=== PATIENT | female | born 1990 | race Caucasian/White ===

== ENCOUNTER 2019-02-19 12:43 | Inpatient (IN) | payer OTHER ==
[2019-02-19] MEDS ORDERED: WITCH HAZEL 50% (TUCKS) 40 PAD/JAR PAD TP PRN (14:04)
[2019-02-19] MEDS ORDERED: IBUPROFEN 800 MG/8 ML IJ IVPB PRN (14:04)
[2019-02-19] MEDS ORDERED: BENZOCAINE 20% 57 GM BOTTLE TP PRN (14:04)
[2019-02-19] MEDS ORDERED: BENZOCAINE 28 GM HEMORRHOIDAL OINTMENT PR PRN (14:04)
[2019-02-19] MEDS ORDERED: METHYLERGONOVINE MALEATE 0.2 MG/1 ML AMP IM PRN (14:04)
[2019-02-19] MEDS ORDERED: diphenhydrAMINE HCL 25 MG CAPSULE (FP) PO PRN (14:04)
--- NOTE | 2019-02-19 14:04 | HP ---
Past Medical History - Primary Care Physician PCP:: Myla Muñoz - Admission Chief Complaint: Prev CS X 2 week History of Present Illness: 28 yo Previous cS in active labor for repeat CS History Source: Patient Limitations to Obtaining History: No Limitations - Past Medical History ...: 3 ...Para: 2 ...Term: 2 ...: 0 ...Spon : 0 ...Induced : 0 ...EDC by [facility]: 03/04/19 - Past Surgical History Past Surgical History: Yes: Hx Myomectomy: No Hx Transabdominal Cerclage: No - Smoking History Have you smoked in the past 12 months: No - Alcohol/Substance Use Hx Alcohol Use: No History of Substance Use: reports: None - Social History History of Recent Travel: No Home Medications - Allergies Allergies/Adverse Reactions: Allergies Allergy/AdvReac Type Severity Reaction Status Date / Time No Known Allergies Allergy Verified 02/19/19 13:25 - Home Medications Home Medications: Ambulatory Orders Vits96/Iron Fum/Folic [ Tablet] 1 each PO DAILY 02/19/19 Ibuprofen [Motrin -] 600 mg PO QID #28 tablet 02/21/19 Physical Exam - Maternity Vital Signs: Vital Signs Temperature 98.0 F 02/19/19 13:40 Pulse Rate 105 H 02/19/19 13:40 Respiratory Rate 18 02/19/19 13:40 Blood Pressure 124/66 02/19/19 13:40 O2 Sat by Pulse Oximetry (%) Hemorrhage Risk Assessment - Risk Factors Medium Risk Factors: Yes: Prior , uterine surgery,or multiple laparotomies High Risk Factors: Yes: Active bleeding on admission Risk Score: 3 Risk Level: High Risk Problem List - Problems (1) Previous delivery affecting , antepartum Code(s): O34.219 - MATERNAL CARE FOR UNSP TYPE SCAR FROM PREVIOUS DEL (2) 38 weeks gestation of Code(s): Z3A.38 - 38 WEEKS GESTATION OF Assessment/Plan Prev CS X 2 Active bleeding Cat 1 Plan Repeat CS
[2019-02-19 14:07] LABS: BASO % 0.4 % (0-2.0); EOS % 2.2 % (0-4.5); HEMATOCRIT 38.1 % (32.4-45.2); HEMOGLOBIN 12.9 GM/dL (10.7-15.3); LYMPH % 17.2 % (8-40); MCH 30.3 pg (25.7-33.7); MCHC 33.9 g/dl (32.0-36.0); MEAN CELL VOLUME 89.3 fl (80-96); MEAN PLT VOLUME 9.8 fl (7.5-11.1); MONO % 7.8 % (3.8-10.2); NEUT % 72.4 % (42.8-82.8); PLATELET COUNT 205 K/MM3 (134-434); RBC 4.26 M/mm3 (3.60-5.2); RDW 13.4 % (11.6-15.6); WHITE BLOOD COUNT 9.8 K/mm3 (4.0-10.0)
[2019-02-19] MEDS ORDERED: ELECTROLYTE-148 SOLN 1,000 ML IV SCH ×2 (14:15→15:00)
[2019-02-19] MEDS ORDERED: METOCLOPRAMIDE HCL INJECTION 10 MG/2 ML VIAL IVPUSH ONE (14:18)
[2019-02-19 14:19] VITALS: BMI 32.3
[2019-02-19 14:20] LABS: INR 0.95 (0.83-1.09); PROTHROMBIN TIME (PATIENT) 11.2 SEC (9.7-13.0)
[2019-02-19 14:23] LABS: ACTIVATED PTT 27.2 SECONDS (25.2-36.5)
[2019-02-19] MEDS ORDERED: METOCLOPRAMIDE HCL INJECTION 10 MG/2 ML VIAL ONE (14:27)
[2019-02-19] MEDS ORDERED: CITRIC ACID/SODIUM CITRATE 30 ML UNIT-DOSE CUP PO ONE (14:30)
[2019-02-19] MEDS ORDERED: ELECTROLYTE-148 SOLN 500 ML IV SCH (14:30)
[2019-02-19 14:56] LABS: BLOOD UREA NITROGEN 8.6 mg/dL (7-18); CALCIUM 8.2 mg/dL (8.5-10.1); CREATININE 0.5 mg/dL (0.55-1.3)
[2019-02-19] MEDS ORDERED: OXYTOCIN 20 UNITS in 0.9% NS 40 UNIT/2,000 ML INFUS.BAG IV ONE (15:39)
[2019-02-19] MEDS ORDERED: morphine SULFATE/PF 0.5 MG/ML (2cc Syringe - QUVA) ONE (16:58)
[2019-02-19] MEDS ORDERED: ceFAZolin SODIUM 1 GM VIAL ONE (17:00)
[2019-02-19] MEDS ORDERED: PHENYLEPHRINE HCL 10 MG/1 ML SINGLE DOSE VIAL ONE (17:10)
[2019-02-19] MEDS ORDERED: KETOROLAC TROMETHAMINE 30 MG/1 ML VIAL ONE (17:34)
[2019-02-19] MEDS: OXYTOCIN 20 UNITS in 0.9% NS 20 UNIT/1,000 ML INFUS.BAG IV SCH (17:56)
--- NOTE | 2019-02-19 18:01 | OP ---
Operative Note - Note: Operative Date: 02/19/19 Pre-Operative Diagnosis: Previous Section Operation: Low Transverse Section Findings: Live male infant Post-Operative Diagnosis: Same as Pre-op Surgeon: Myla Muñoz Anesthesia: Spinal Estimated Blood Loss (mls): 600 Operative Report Dictated: Yes
[2019-02-19] MEDS ORDERED: ONDANSETRON 4 MG/2 ML VIAL IVPUSH PRN (18:08)
--- NOTE | 2019-02-19 20:05 | OP ---
DATE OF OPERATION: 02/19/2019 PREOPERATIVE DIAGNOSIS: Previous section, active labor, intrauterine at 38 weeks. OPERATION: Repeat low transverse section. POSTOPERATIVE DIAGNOSIS: Live male , nuchal cord x1. SURGEON: Myla Muñoz M.D. TAPROOM ATTENDANT: Piyush Castillo M.D. ANESTHESIA: Spinal. ESTIMATED BLOOD LOSS: 600 mL. PROCEDURE: Patient was taken to the operating room, placed in supine position. Prepped and draped in usual sterile fashion. Timeout was performed in accordance with hospital regulation. A Pfannenstiel skin incision was made with the patient's scar. Cautery was then used to go through layers of abdominal wall to the fascia. Cautery was then cut in the midline and fascia was then opened in a smiley fashion. Boo was then used to bluntly and sharply dissect the rectus muscles off the fascia. Muscle was split in the midline. Peritoneal cavity was entered up and down with bladder retractor then placed. Scalpel was then used to make a low transverse uterine incision. Incision was carried upwards with the use of bandage scissors. A live male was delivered in OT position. Nuchal cord x1 was reduced. Shoulders were delivered without difficulty. Cord was clamped and cut. Cord blood obtained. Placenta was manually extracted from uterus. Uterus exteriorized and cleaned with lap pads. Uterine incision then closed using 0 Vicryl suture, 1st layer continuous and locking, 2nd layer imbricating 1st layer. Hemostasis was achieved. Uterus interiorized. Abdominal cavity cleaned with lap pads. Peritoneum closed with 0 Biosyn suture. Fascia then closed using 0 Vicryl sutures, 2 parts. Skin was then closed using 3-0 Vicryl in continuous fashion. The wound was washed and dressed. Patient tolerated procedure well. Estimated blood loss 600 mL. MYLA MUÑOZ M.D. [id number]
--- NOTE | 2019-02-20 10:47 | PN ---
Progress Note, Physician Chief Complaint: s/p c section post op day one History of Present Illness: under spinal anesthesia and duramorph for post op pain control - Current Medication List Current Medications: Active Medications Acetaminophen (Tylenol -) 650 mg PO Q4H PRN PRN Reason: FEVER Benzocaine (Americaine 20% Hawkins -) 1 spray TP PRN PRN PRN Reason: Pain - Topical Benzocaine (Americaine Ointment -) 1 applic MO PRN PRN PRN Reason: Pain - Topical Bisacodyl (Dulcolax Suppository -) 10 mg RC PRN PRN PRN Reason: CONSTIPATION Diphenhydramine HCl (Benadryl -) 25 mg PO Q6H PRN PRN Reason: FOR ITCHING Hydromorphone HCl (Dilaudid -) 4 mg PO Q4H PRN PRN Reason: PAIN LEVEL 7 - 10 Stop: 02/21/19 14:03 Oxytocin/Sodium Chloride (Normal Saline+20 Units Oxytocin -) 20 unit in 1,000 mls @ 125 mls/hr IV [facility] Stop: 02/21/19 02:44 Last Admin: 02/19/19 17:56 Dose: 125 mls/hr Ibuprofen (Caldolor Injection -) 800 mg IVPB Q6H PRN PRN Reason: Fever - If PO not effective. Last Admin: 02/20/19 06:03 Dose: 800 mg Ibuprofen (Motrin -) 600 mg PO Q4H PRN PRN Reason: FEVER Methylergonovine Maleate (Methergine Injection -) 0.2 mg IM Q4H PRN PRN Reason: EXCESSIVE BLEEDING Ondansetron HCl (Zofran Injection) 4 mg IVPUSH Q4H PRN PRN Reason: NAUSEA Oxycodone HCl (Roxicodone -) 5 mg PO Q4H PRN PRN Reason: PAIN LEVEL 1-5 Oxycodone HCl (Roxicodone -) 10 mg PO Q4H PRN PRN Reason: PAIN LEVEL 6-10 Senna/Docusate Sodium (Pericolace -) 2 tablet PO HS PRN PRN Reason: CONSTIPATION Simethicone (Mylicon -) 80 mg PO Q4H PRN PRN Reason: GAS Witch Suly/Glycerin (Tucks Pads -) 1 pad TP PRN PRN PRN Reason: Pain - Topical - Objective Vital Signs: Vital Signs Temperature 98.7 F 02/20/19 07:30 Pulse Rate 84 02/20/19 07:30 Respiratory Rate 18 02/20/19 10:00 Blood Pressure 112/53 L 02/20/19 07:30 O2 Sat by Pulse Oximetry (%) 100 02/19/19 18:45 Constitutional: Yes: Well Nourished Cardiovascular: Yes: WNL Respiratory: Yes: WNL Gastrointestinal: Yes: WNL Labs: CBC, BMP 02/19/19 13:55 02/19/19 13:55 INR, PTT INR 0.95 (0.83-1.09) 02/19/19 13:55 Assessment/Plan No adverse anesthetic complications, dept of anesthesiology will sign off at this time
[2019-02-20 11:01] LABS: HEMATOCRIT 32.2 % (32.4-45.2); HEMOGLOBIN 11.1 GM/dL (10.7-15.3); MCH 30.7 pg (25.7-33.7); MCHC 34.3 g/dl (32.0-36.0); MEAN CELL VOLUME 89.7 fl (80-96); MEAN PLT VOLUME 9.9 fl (7.5-11.1); PLATELET COUNT 169 K/MM3 (134-434); RDW 13.2 % (11.6-15.6); WHITE BLOOD COUNT 12.4 K/mm3 (4.0-10.0)
[2019-02-20] MEDS: IBUPROFEN 600 MG TABLET (FP) PO PRN (12:10)
[2019-02-20] MEDS: ACETAMINOPHEN 325 MG TABLET (FP) PO PRN ×2 (12:11→20:25)
[2019-02-20] MEDS: SIMETHICONE 80 MG TAB.CHEW (FP) PO PRN ×2 (12:11→20:25)
[2019-02-20] MEDS ORDERED: oxyCODONE HCL 5 MG TABLET PO PRN (14:04)
[2019-02-20] MEDS ORDERED: BISACODYL 10 MG SUPP.RECT RC PRN (14:05)
--- NOTE | 2019-02-20 15:31 | PN ---
Post Note - Post Date of Delivery: 02/19/19 Vital Signs: Vital Signs - 24 hr 02/19/19 02/19/19 02/19/19 16:26 17:57 18:15 Temperature 98.0 F 98.3 F Pulse Rate 89 87 80 Respiratory 18 18 18 Rate Blood Pressure 133/67 105/58 L 104/58 L O2 Sat by Pulse 100 100 Oximetry (%) 02/19/19 02/19/19 02/19/19 18:30 18:45 19:56 Temperature Pulse Rate 76 75 86 Respiratory 18 18 20 Rate Blood Pressure 97/67 112/72 130/68 O2 Sat by Pulse 100 100 Oximetry (%) 02/19/19 02/19/19 02/19/19 21:00 22:00 23:00 Temperature Pulse Rate Respiratory 20 20 20 Rate Blood Pressure O2 Sat by Pulse Oximetry (%) 02/20/19 02/20/19 02/20/19 00:00 01:00 02:00 Temperature Pulse Rate Respiratory 20 20 20 Rate Blood Pressure O2 Sat by Pulse Oximetry (%) 02/20/19 02/20/19 02/20/19 03:00 04:00 05:00 Temperature Pulse Rate Respiratory 20 20 20 Rate Blood Pressure O2 Sat by Pulse Oximetry (%) 02/20/19 02/20/19 02/20/19 06:00 07:00 07:30 Temperature 98.7 F 98.7 F Pulse Rate 90 84 Respiratory 20 18 18 Rate Blood Pressure 104/65 112/53 L O2 Sat by Pulse Oximetry (%) 02/20/19 02/20/19 02/20/19 08:00 09:00 10:00 Temperature Pulse Rate Respiratory 18 18 18 Rate Blood Pressure O2 Sat by Pulse Oximetry (%) 02/20/19 02/20/19 13:15 14:00 Temperature 98.5 F Pulse Rate 73 Respiratory 18 18 Rate Blood Pressure 119/63 O2 Sat by Pulse Oximetry (%) Labs: Laboratory Results - last 24 hr 02/19/19 02/19/19 02/19/19 13:55 13:55 16:15 WBC RBC Hgb Hct MCV MCH MCHC RDW Plt Count MPV Cord Blood pH Cord Blood PCO2 Cord Blood PO2 Cord Blood HCO3 Cord Base Excess RPR Titer Nonreactive Blood Type A POSITIVE A POSITIVE Antibody Screen Negative 1202/19/19 02/20/19 17:20 17:20 10:18 WBC 12.4 H RBC 3.60 Hgb 11.1 Hct 32.2 L D MCV 89.7 MCH 30.7 MCHC 34.3 RDW 13.2 Plt Count 169 MPV 9.9 Cord Blood pH 7.31 7.35 Cord Blood PCO2 50.5 41.5 Cord Blood PO2 < 49 H < 49 H Cord Blood HCO3 24.4 22.4 Cord Base Excess -2.3 L -2.6 L RPR Titer Blood Type Antibody Screen - Subjective Subjective: No Complaints - Objective Afebrile: Yes Breast: Not engorged
[2019-02-20] MEDS: oxyCODONE HCL 5 MG TABLET PO PRN (20:25)
[2019-02-21] MEDS: SIMETHICONE 80 MG TAB.CHEW (FP) PO PRN ×4 (00:35→22:27)
[2019-02-21] MEDS: oxyCODONE HCL 5 MG TABLET PO PRN ×2 (00:36→22:27)
[2019-02-21] MEDS: IBUPROFEN 600 MG TABLET (FP) PO PRN ×4 (00:36→22:27)
[2019-02-21] MEDS: ACETAMINOPHEN 325 MG TABLET (FP) PO PRN ×2 (10:08→15:05)
--- NOTE | 2019-02-21 18:48 | PN ---
Post Note - Post Date of Delivery: 02/19/19 Post Day: 2 Vital Signs: Vital Signs - 24 hr 02/20/19 02/21/19 21:35 09:00 Temperature 99 F 98.4 F Pulse Rate 93 H 90 Respiratory 20 18 Rate Blood Pressure 132/82 120/88 - Subjective Subjective: No Complaints, Ambulating - Objective Afebrile: Yes Breast: Not engorged Abdomen: Soft, Non-tender, Other Uterus: Fundus firm Vagina: Scant lochia Extremities: Non-tender - Assessment/Plan (1) Previous delivery affecting , antepartum Assessment: Other (POD2) Plan: Routine Care
[2019-02-21] MEDS ORDERED: SENNOSIDES/DOCUSATE COMBO (SENNA PLUS) TABLET (UD) PO PRN (22:00)
[2019-02-22] MEDS: OXYTOCIN 20 UNITS in 0.9% NS 20 UNIT/1,000 ML INFUS.BAG IV SCH (03:52)
--- NOTE | 2019-02-22 08:06 | DS ---
Physical Exam-BUSINESS SYSTEMS ARCHITECT Vital Signs: Vital Signs Temperature 97.3 F L 02/21/19 20:22 Pulse Rate 85 02/21/19 20:22 Respiratory Rate 20 02/21/19 20:22 Blood Pressure 131/81 02/21/19 20:22 O2 Sat by Pulse Oximetry (%) 100 02/19/19 18:45 Constitutional: Yes: Well Nourished, No Distress Gastrointestinal: Yes: WNL, Soft ....Post : Yes: Uterus firm, Uterus non-tender Breast(s): Yes: WNL Musculoskeletal: Yes: WNL Extremities: Yes: WNL Edema: No Integumentary: Yes: WNL Wound/Incision: Yes: Steri Strips, Open to air Neurological: Yes: WNL, Alert, Oriented Labs: CBC, BMP 02/20/19 10:18 02/19/19 13:55 Delivery - Delivery Section: Low Flap Transverse Type of Anesthesia: Spinal Episiotomy/Laceration: None EBL (cc): 600 Delivery, Single - Stages of Labor Date 1st Stage Initiatied: 02/19/19 Time 1st Stage Initiated: 12:00 Date of Delivery: 02/19/19 Time of Delivery: 17:19 Time Placenta Delivered: 17:20 Placenta: Yes: Spontaneous - Condition of Green Hide Inspector/Sales Office Manager Present: Yes Name: Frankie De León Gender: Male Weight: 6 lb 6 oz Position: OT Total Hours ROM (Hrs/Mins): 0/2 - 1 Minute Total Score: 8 5 Minutes Total Score: 9 - [place] Feeding Plan Initial Plan: Elected not to breastfeed exclusively throughout hospitalization Discharge Summary Problems reviewed: Yes Reason For Visit: REPEAT Current Active Problems 38 weeks gestation of (Acute) Previous delivery affecting , antepartum (Acute) Procedures: Principal: Low Transverse Section Hospital Course: Unremarkable Condition: Good - Instructions Diet, Activity, Other Instructions: Physical activity Resume your normal everyday activity as tolerated no heavy lifting or exercise until seen by your surgeon. You may walk unlimited tita of and climb stairs. You may resume driving the car when you feel safe and comfortable behind the wheel. No sexual activity as instructed. Wound care If you have a bandage, leave it on, and keep dry for 48-72 hours. After that time discard the outer bandage. If they are tapes on the skin under the out of bandage leave them in place. They will peel off in the next 7 to 10 days. Do Not Peel them off. You may shower the day after surgery. If there are tapes present on the skin, you may shower over them. Diet There are no dietary restrictions. Eat healthy, high-fiber foods. Drink 6 to 8 glasses of liquid each day. This will assist in keeping your bowels are regular. Pain management You may take Tylenol or acetaminophen or Ibuprofen (for example, Motrin, Advil etc.) from my pain prescription medication is ordered should be taken as prescribed for moderate to severe pain. Call MD for any of the following: Severe pain not relieved by medication Fever of 101 or higher Excessive bleeding or drainage on dressing Inability to urinate Referrals: Myla Muñoz MD [Staff Physician] - Disposition: HOME - Home Medications Comprehensive Discharge Medication List: Ambulatory Orders Vits96/Iron Fum/Folic [ Tablet] 1 each PO DAILY 02/19/19 Ibuprofen [Motrin -] 600 mg PO QID #28 tablet 02/21/19
[2019-02-22 09:25] LABS: HEMATOCRIT 32.1 % (32.4-45.2); HEMOGLOBIN 11.1 GM/dL (10.7-15.3); MCH 30.8 pg (25.7-33.7); MCHC 34.4 g/dl (32.0-36.0); MEAN CELL VOLUME 89.4 fl (80-96); MEAN PLT VOLUME 9.7 fl (7.5-11.1); PLATELET COUNT 204 K/MM3 (134-434); RDW 13.2 % (11.6-15.6); WHITE BLOOD COUNT 9.6 K/mm3 (4.0-10.0)
[2019-02-22 09:50] VITALS: BP 123/54; PULSE 75; TEMP 98.3
--- NOTE | 2019-02-27 15:10 | PATH ---
Surgical Pathology Report Patient Name: NOE ELLINGTON Med. Rec. #: [id number] /Age/Gender: 1990 (Age: 28) / F Account: [id number] Location: [facility] OBS/PERSONNEL GENERALIST MANAGER Taken: 02/19/2019 Received: 02/20/2019 Reported: 02/27/2019 Physicians: Myla Muñoz M.D. Specimen(s) Received PLACENTA Clinical History , 38.1 weeks, previous in early labor with vaginal bleeding Final Diagnosis PLACENTA: THIRD TRIMESTER PLACENTA. TRIVASCULAR CORD. MEMBRANES WITH NO DIAGNOSTIC ABNORMALITIES. Electronically Signed Juanita Self M.D. Gross Description The specimen is received fresh labeled placenta and is a 459 gram, 19.5 x 15.5 x 2.7 cm. placenta with attached membranes and umbilical cord. The attached membranes are ahuja, translucent with focal opacities and insert marginally. The umbilical cord measures 14.5 cm. in length and averages 1.2 cm. in diameter. The cord inserts eccentrically, 4 cm. to the nearest margin. No true knots or strictures are identified. Cut surface of the umbilical cord reveals 3 vessels. The surface is page-blue with minimal fibrin deposition and appropriate caliber vessels. The maternal surface is red-brown with focal defects. Sectioning reveals red-brown, spongy parenchyma. No lesions are identified. Trumpet Teacher sections are submitted in three cassettes as follows: 1- membrane rolls and umbilical cord; 2-3- full thickness sections of placenta. 02/26/[address] [facility]/26/2019
== END 2019-02-22 14:10 | disposition home or self-care (01) | DRG 540 ==
LOC: JDEL 12:43 → JLDR 13:40 → J3W 20:10
PROVIDERS: ADMIT Obstetrics & Gynecology; ATTEND Obstetrics & Gynecology
PROC: 10D00Z1 Extraction of Products of Conception, Low, Open Approach (ICD-10-PCS; principal; 2019-02-19)
DX: O34.211 Maternal care for low transverse scar from previous cesarean delivery (principal); N85.8 Other specified noninflammatory disorders of uterus; Z3A.38 38 weeks gestation of pregnancy; Z37.0 Single live birth
CPT/HCPCS: 36415; 36600; 80048; 82803; 85025; 85027; 85610; 85730; 86593; 86850; 86900; 86901; 88307-TC